=== PATIENT | male | born 1990 | race Caucasian/White ===

== ENCOUNTER 2018-11-17 06:27 | Day surgery (SDC) | payer OTHER ==
[2018-11-17] MEDS ORDERED: BUPIVACAINE 0.25% (MPF) 30 ML INJ (07:36)
[2018-11-17] MEDS ORDERED: HYDROmorphONE 1 MG/5 ML IV SYRINGE IV (08:30)
[2018-11-17] MEDS ORDERED: ONDANSETRON 4 MG INJ IV (08:30)
[2018-11-17] MEDS ORDERED: FENTAnyl 50 MCG/ML VIAL (08:34)
[2018-11-17] MEDS ORDERED: MIDAZOLAM 1 MG/ML 2 ML INJ (08:34)
[2018-11-17] MEDS ORDERED: LIDOCAINE 2% (SDV) 5 ML INJ (08:47)
[2018-11-17] MEDS ORDERED: CEFAZOLIN 1 GM INJ (08:47)
[2018-11-17] MEDS ORDERED: PROPOFOL 20 ML (08:47)
[2018-11-17] MEDS ORDERED: ONDANSETRON 4 MG INJ (08:51)
[2018-11-17] MEDS: BUPIVACAINE 0.25% (MPF) 30 ML INJ INJ ×2 (09:20)
[2018-11-17] MEDS: HYDROmorphONE 1 MG/5 ML IV SYRINGE IV ×2 (09:29→09:35)
[2018-11-17] MEDS ORDERED: HYDROCODONE/APAP (5/325) TAB PO (09:30)
== END 2018-11-17 10:52 | disposition home or self-care (01) ==
LOC: SDS 06:27
DX: D17.1 Benign lipomatous neoplasm of skin and subcutaneous tissue of trunk (principal)
CPT/HCPCS: 14001; 88307